=== PATIENT | male | born 1965 | race Caucasian/White ===

== ENCOUNTER → 2018-10-13 | Outpatient (CLI) | payer OTHER ==
[2015-04-14 11:05] VITALS: BP 102/78
[~2018-10-13] MED LIST: ALPR0.5T6 PO; AMLO10TA8 PO; ASPI325T8 PO; CLOP75TA PO; CRESTOR20 MG PO; FENO134C PO; INSU100I27 SQ; INSU100V SQ; LISI-130 PO; METF10007 PO; METO50TA6 PO; SIMV20TA3 PO; acid reducer
--- NOTE | 2018-10-13 11:33 | CARD ---
MR#: [id number] Date of Study: 10/13/2018 Ordering Physician: AVERY CASAS, Referring Physician: AVERY CASAS, Tech: Yamel Zaldivar APPROVED REPORT EXAM: Two-dimensional and M-mode echocardiogram with Doppler and color Doppler. Other Information Quality : AverageHR: 53bpm Technically limited study due to body habitus. INDICATION Cardiac Disease: CAD Past [place] Surgery/Intervention CABG: Date: 2008 Stents 2015 RISK FACTORS Hypertension Hyperlipidemia Diabetes 2D DIMENSIONS RVDd2.5 (2.9-3.5cm)Left Atrium(2D)3.9 (1.6-4.0cm) IVSd1.1 (0.7-1.1cm)Aortic Root(2D)3.3 (2.0-3.7cm) LVDd6.2 (3.9-5.9cm)LVOT Diameter2.1 (1.8-2.4cm) PWd1.0 (0.7-1.1cm)LVDs3.8 (2.5-4.0cm) FS (%) 39.0 %SV133.2 ml LVEF(%)68.4 (>50%) Aortic Valve AoV Peak Antoine.118.9cm/sAoV VTI18.5cm AO Peak GR.5.7mmHgLVOT Peak Antoine.99.0cm/s LVOT VTI 21.73cmAO Mean GR.3mmHg ARABELLA (VMAX)2.06qh6QQP (VTI)4.21cm2 AI P 1/2 Dcal518xi Mitral Valve MV E Wbzoognl95.3cm/sMV DECEL BGEM703yh MV A Bcmirqxm08.2cm/sMV HKT07rk E/A Ratio1.8MVA (PHT)4.16cm2 TDI E/Lateral E'9.0E/Medial E'10.0 Pulmonary Valve PV Peak Soflbzrb118.1cm/sPV Peak Grad.4mmHg Tricuspid Valve TR P. Jiuaabyd343fb/sRAP NKBTXEXS2urBx TR Peak Gr.53qnMjYMLF39zvOu Pulmonary Vein S1 Kjckgfzt64.0cm/sD2 Xwmqxqzk05.6cm/s PVa piwmtgye882ymhs LEFT VENTRICLE The Left Ventricle is moderately dilated. There is borderline concentric left ventricular hypertrophy . The left ventricular systolic function is normal. The Ejection Fraction is 55%. There is normal LV segmental wall motion. Transmitral Doppler flow pattern is Grade II-pseudonormal filling dynamics. RIGHT VENTRICLE The right ventricle is normal size. There is normal right ventricular wall thickness. The right ventr icular systolic function is normal. ATRIA The left atrium is mildly dilated. The right atrium size is normal. The interatrial septum is intact with no evidence for an atrial septal defect or patent foramen ovale as noted on 2-D or Doppler imagi ng. AORTIC VALVE The aortic valve is normal in structure and function. Doppler and Color Flow revealed trace aortic re gurgitation. There is no significant aortic valvular stenosis. MITRAL VALVE The mitral valve is normal in structure and function. There is no evidence of mitral valve prolapse. There is no mitral valve stenosis. Doppler and Color-flow revealed trace mitral regurgitation. TRICUSPID VALVE The tricuspid valve is normal in structure and function. Doppler and Color Flow revealed trace tricus pid regurgitation with an estimated PAP of 35 mmHg. There is no tricuspid valve stenosis. PULMONIC VALVE The pulmonic valve is not well visualized. Doppler and Color Flow revealed trace pulmonic valvular re gurgitation. GREAT VESSELS The aortic root is normal in size. The IVC was not visualized. PERICARDIAL EFFUSION There is no evidence of significant pericardial effusion. Critical Notification Critical Value: No <Conclusion> The left ventricular systolic function is normal. The Ejection Fraction is 55%. There is normal LV segmental wall motion. Transmitral Doppler flow pattern is Grade II-pseudonormal filling dynamics. Trace mitral regurgitation. Trace tricuspid regurgitation with an estimated PAP of 35 mmHg. There is no evidence of significant pericardial effusion. Signed by : Roddy Guardado, Electronically Approved : 10/13/2018 11:33:03
== END | disposition home or self-care (01) ==
LOC: ECHO 07:53
PROVIDERS: ATTEND Internal Medicine Cardiovascular Disease
DX: I11.9 Hypertensive heart disease without heart failure (principal); I25.10 Atherosclerotic heart disease of native coronary artery without angina pectoris; I25.2 Old myocardial infarction; E78.5 Hyperlipidemia, unspecified; E11.9 Type 2 diabetes mellitus without complications
CPT/HCPCS: 93306

== ENCOUNTER → 2019-09-08 | Outpatient (CLI) | payer OTHER ==
[2015-04-14 11:05] VITALS: BP 102/78
[~2019-09-08] MED LIST changes: -INSU100V SQ; +INSU100V6 SQ; +REGADENOSON 0.4 MG/5 ML DISP.SYRIN. IV ONE; +SIMV20TA18 PO; -SIMV20TA3 PO
--- NOTE | 2019-09-08 17:45 | RAD ---
MR#: [id number] Date of Study: 09/08/2019 Ordering Physician: AVERY CASAS, Referring Physician: AP PELAYO Tech: RT Gianni Keller) (N) APPROVED REPORT Test Type: Pharmacological Stress Nurse/Tech: Zoe Martinez RN Test Indications: Previous IN and Open heart surgery Cardiac History: Family history, Hypertension, High cholesterol, Diabetes, IN with stents, CABG Medications: See Electronic Medical Record Medical History: See Electronic Medical Record Resting ECG: SR Resting Heart Rate: 61 bpm Resting Blood Pressure: 140/71mmHg Pretest Chest Pain: No chest pain Nurse/Tech Notes S1S2, Lungs CTA Consent: The procedure was explained to the patient in lay terms. Informed consent was witnessed. Charly eout was entered into [employer]. History and Stress Test performed by RT Karishma (R) (N) Pharm. Details Pharmacologic stress testing was performed using 0.4mg per 5ml of regadenoson given intravenously ove r 7-10 seconds. Stress Symptoms Dyspnea, chest tightness 3/10. POST EXERCISE Reason for Termination: Infusion complete Max HR: 105 bpm Max Blood Pressure: 144/58mmHg Blood Pressure response to exercise: Normal blood pressure response during stress. Heart Rate response to exercise: WNL Chest Pain: Yes. Chest tightness 3/10, resolved by end of test. Arrhythmia: No. ST Change: No. INTERPRETATION Stress EKG Conclusion: No evidence of stress induced EKG changes. Imaging Protocol IMAGE PROTOCOL: Rest Tc-99m/stress Tc-99m 1 day Rest: Stress: Viability: Radiopharm.Tc99m QtvchffbxZj09f Sestamibi Gewo04vZx 32.3mCi Duration 15min. 15min. Img Date 09/08/2019 09/08/2019 Inj-Img Qwhy27hhj. 60min. Rest Admin Site:IV - Right AntecubitalAdministrator:RT Arianna (R)(N) Stress Admin Site: IV - Right AntecubitalAdministrator: RT Gianni Schwarz)(N) STRESS DATA End Diast. Vol.126.0mlAv. Heart Rate73.0bpm End Syst. Vol.24.0mlCO Index BSA0.0L/min Myocardial Mmbx196.0gEject. Sxjhxfdh53.0% Stress Rates Pk. Fill Rate3.43EDV/secLVtime Pk. Fill 136.55msec Pk. Empty Rate4.06ESV/secLVtime Pk. Cgecw898.72msec 1/3 Pk. Fill1.97EDV/sec Stress Scores Regional WT0.00Summed WT0.00 Regional WM0.00Summed WM1.00 The rest and stress images show normal perfusion, normal contraction and thickening. LV Perf. Quant 17 Seg. SSS0.00 17 Seg. SRS0.00 17 Seg. SDS0.00 Stress Defect Extent (% LAD)0.00Rest Defect Extent (% LAD)0.00Rev. Defect Extent (% LAD)0.00 Stress Defect Extent (% LCX) 0.00Rest Defect Extent (% LCX)0.00Rev. Defect Extent (% LCX)0.00 Stress Defect Extent (% RCA)0.00Rest Defect Extent (% RCA)0.00Rev. Defect Extent (% RCA)0.00 Stress Defect Extent (% GLO)0.00Rest Defect Extent (% GLO)0.00Rev. Defect Extent (% GLO)0.00 Other Information Quality:Good Risk Assessment: Low Risk Conclusion 1. No evidence of EKG changes with stress testing. 2. Normal perfusion at stress/rest. 3. Low risk study. 4. EF > 60%. Signed by : Jann Hickman, Electronically Approved : 09/08/2019 17:45:40
== END | disposition home or self-care (01) ==
LOC: NM 11:08
PROVIDERS: ATTEND Internal Medicine Cardiovascular Disease
DX: I25.2 Old myocardial infarction (principal)
CPT/HCPCS: 78452; 93017; A9500; J2785

== ENCOUNTER → 2021-07-20 | Outpatient (CLI) | payer OTHER ==
[2015-04-14 11:05] VITALS: BP 102/78
[~2021-07-20] MED LIST changes: +AMLO-187 PO; -AMLO10TA8 PO; -FENO134C PO; +FENO134C22 PO
--- NOTE | 2021-07-20 15:52 | RAD ---
MR#: [id number] Date of Study: 07/20/2021 Ordering Physician: AVERY CASAS, Referring Physician: AP PELAYO Tech: JOCELYN Arita APPROVED REPORT Test Type: Pharmacological Stress Nurse/Tech: Sigifredo Winter RN Test Indications: SOA, Fatigue Cardiac History: CABG, 2 Stents, HTN, DM Medications: See Electronic Medical Record Medical History: See Electronic Medical Record Resting ECG: SB Resting Heart Rate: 54 bpm Resting Blood Pressure: 139/76mmHg Pretest Chest Pain: None Nurse/Tech Notes Lungs CTA, S1S2 Consent: The procedure was explained to the patient in lay terms. Informed consent was witnessed. Charly eout was entered into [employer]. History and Stress Test performed by JOCELYN Arita Pharm. Details Pharmacologic stress testing was performed using 0.4mg per 5ml of regadenoson given intravenously ove r 7-10 seconds. Stress Symptoms No chest pain or symptoms. POST EXERCISE Reason for Termination: Infusion complete Max HR: 84 bpm Max Blood Pressure: 136/64mmHg Blood Pressure response to exercise: Normal blood pressure response during stress. Heart Rate response to exercise: Normal Chest Pain: No. Arrhythmia: No. ST Change: No. INTERPRETATION Stress EKG Conclusion: Baseline EKG showed sinus rhythm. No ischemic changes at peak stress. No arr hythmias. Imaging Protocol IMAGE PROTOCOL: Rest Tc-99m/stress Tc-99m 1 day Rest: Stress: Viability: Radiopharm.Tc99m GuunyhjpnQt60y Sestamibi Gntb05vUc 32mCi Duration 15min. 13min. Img Date 07/20/2021 07/20/2021 Inj-Img Xqbw68ixm. 60min. Rest Admin Site:IV - Left AntecubitalAdministrator:JOCELYN Arita Stress Admin Site: IV - Left AntecubitalAdministrator: Gian Peacock, RT (R)(N) STRESS DATA End Diast. Vol.147.0mlLVEDV index BSA67.0ml End Syst. Vol.45.0mlLVESV index BSA20.0ml Myocardial Mjxq183.0gEject. Zgwittxo17.0% Stress Scores Regional WT0.00Summed WT1.00 Regional WM0.00Summed WM4.00 Study quality was good. Left Ventricular size was Normal at Rest and Stress. Lung uptake was . Left Ventricular ejection fraction is 70%. The rest and stress images show normal perfusion, normal contraction and thickening. LV Perf. Quant 17 Seg. SSS2.00 17 Seg. SRS0.00 17 Seg. SDS2.00 Stress Defect Extent (% LAD)0.00Rest Defect Extent (% LAD)0.00Rev. Defect Extent (% LAD)0.00 Stress Defect Extent (% LCX) 6.30Rest Defect Extent (% LCX)0.00Rev. Defect Extent (% LCX)1.30 Stress Defect Extent (% RCA)6.70Rest Defect Extent (% RCA)6.70Rev. Defect Extent (% RCA)0.00 Stress Defect Extent (% GLO)4.60Rest Defect Extent (% GLO)1.30Rev. Defect Extent (% GLO)2.00 Conclusion 1. Regadenoson cardioisotope stress test did not show any evidence of ischemia or infarct. 2. Normal left ventricular systolic function with ejection fraction calculated at 70%. 3. Low risk for cardiac events. Signed by : Roddy Guardado, Electronically Approved : 07/20/2021 15:51:35
== END ==
LOC: NM 09:14
PROVIDERS: ATTEND Internal Medicine Cardiovascular Disease
DX: R07.9 Chest pain, unspecified (principal)
CPT/HCPCS: 78452; 93017; A9500; J2785